=== PATIENT | male | born 1955 | race Hispanic/Latino ===

== ENCOUNTER → 2019-02-27 | Outpatient (CLI) | payer MEDICAID ==
[~2019-02-27] MED LIST: AMBROXOL PO; AMIO200T5 PO; LOSA1TAB37 PO; METO-408 PO
== END | disposition home or self-care (01) ==
LOC: SHCH 09:25
PROVIDERS: ATTEND Internal Medicine Cardiovascular Disease
DX: I07.1 Rheumatic tricuspid insufficiency (principal)
CPT/HCPCS: 93306

== ENCOUNTER → 2019-03-03 | Outpatient (CLI) | payer MEDICAID ==
[~2019-03-03] VITALS: Ht 162.6 cm; Wt 65.3 kg
[~2019-03-03] MED LIST changes: +REGADENOSON 0.4 MG/5 ML PF SYG IVP SCH
== END | disposition home or self-care (01) ==
LOC: EDUNIT# 08:10 → SHCH 08:29
PROVIDERS: ATTEND Internal Medicine Cardiovascular Disease
DX: I25.89 Other forms of chronic ischemic heart disease (principal)
CPT/HCPCS: 78452; 93017; 96374; A9500 ×2; J2785

== ENCOUNTER 2019-03-18 06:25 | Day surgery (SDC) | payer MEDICAID ==
[2019-03-16 08:51] LABS: BASOPHILS % (AUTO) 0.6 % (0.0-5.0); EOSINOPHILS % (AUTO) 1.2 % (0.0-8.0); HEMATOCRIT 46.7 % (42-54); LYMPHOCYTES % (AUTO) 18.9 % (21.0-51.0); MEAN CORPUSCULAR HEMOGLOBIN 35.5 pg (27.0-33.0); MEAN CORPUSCULAR HGB CONC 33.9 g/dL (32.0-36.0); MEAN CORPUSCULAR VOLUME 104.7 fL (79-99); MONOCYTES % (AUTO) 11.4 % (3.0-13.0); NEUTROPHILS % (AUTO) 67.9 % (40.0-77.0); PLATELET COUNT (AUTO) 245 K/uL (130-400); RED BLOOD CELL COUNT(AUTO) 4.46 MIL/uL (4.50-6.20); RED CELL DISTRIBUTION WIDTH 15.6 % (11.0-15.5); WHITE BLOOD COUNT (AUTO) 8.2 K/uL (4.8-10.8)
[2019-03-16 08:56] LABS: APPEARANCE,URINE Clear (CLEAR); BILIRUBIN,URINE Negative (NEGATIVE); COLOR,URINE Yellow (YELLOW); GLUCOSE, URINE (UA) Negative (NEGATIVE); KETONES,URINE Negative (NEGATIVE); LEUKOCYTE ESTERASE ,URINE Negative (NEGATIVE); NITRATE,URINE Negative (NEGATIVE); OCCULT BLOOD,URINE Negative (NEGATIVE); PH,URINE 5.5 (5.0-8.0); PROTEIN,URINE Negative (NEGATIVE)
[2019-03-16 08:58] LABS: CREATININE 1.6 mg/dL (0.5-1.5); POTASSIUM 4.6 mmol/L (3.5-5.1)
[2019-03-16 09:00] LABS: INR 1.1 (0.85-1.15); PARTIAL THROMBOPLASTIN TIME 29.9 SEC (26.3-35.5); PROTHROMBIN TIME 11.5 SEC (9.6-11.6)
[2019-03-16 09:05] VITALS: BP 140/85
--- NOTE | 2019-03-17 13:34 | NUR ---
reported sodium of 132, bun 27, skip operator 1.6 cl 98, gfr 46, new orders to hydrate patient before procedure (see orders ) and to repeat bmp in the morning of procedure 03/18/19. Reported chest xray results no new orders.
[~2019-03-18] VITALS: Ht 162.6 cm; Wt 65.3 kg
[2019-03-18] VITALS (11 sets, daily range): BP systolic 116–147; BP diastolic 63–87
[~2019-03-18 06:25] MED LIST changes: -REGADENOSON 0.4 MG/5 ML PF SYG IVP SCH; +SODIUM CHLORIDE 0.9% 1000ML 1,000 ML IV SCH
[2019-03-18 07:07] LABS: CREATININE 1.5 mg/dL (0.5-1.5); POTASSIUM 4.6 mmol/L (3.5-5.1)
--- NOTE | 2019-03-18 10:25 | NUR ---
procedure pt taken to lab scientist via bed,
[2019-03-18] MEDS ORDERED: IOHEXOL 350 MG/ML 100ML INFUS..BTL IV ONE (10:26)
[2019-03-18] MEDS ORDERED: LIDOCAINE HCL 2% 20ML ONE (10:26)
[2019-03-18] MEDS ORDERED: IOHEXOL-350 75 ML VIAL IV ONE (10:56)
[2019-03-18] MEDS ORDERED: SODIUM CHLORIDE 0.9% 1000ML 1,000 ML IV SCH (11:14)
[2019-03-18] MEDS ORDERED: ACETAMINOPHEN-CODEINE 300/30MG TAB PO PRN ×2 (11:15)
--- NOTE | 2019-03-18 11:30 | NUR ---
POST RECEIVED PT BACK FROM [facility]. S/P [facility], PT AWAKE AND ALERT IN BED, NO DISTRESS NOTED. RIGHT GROIN WITH PERCLOSE DRESSING TO SITE DRY AND INTACT, SEE POST CATH ASSESSMENT. PLAN OF CARE DISCUSS WITH PATIENT/ FAMILY.
--- NOTE | 2019-03-18 16:07 | NUR ---
OXYGEN SANDEEP ALEMAN WITH DR. OLMSTEAD NOTIFIED THAT PATIENT HAS BEEN ON 02 3L NC SINCE HE ARRIVED FROM [facility]. PATIENT 02 SAT DROPS TO 89 %-92 ON ROOM AIR. PT DENIES ANY CHEST PAIN OR ANY OTHER DISCOMFORTS. PT STATES HIS BASELINE IS 02 SAT 92%, PT STATES " I HAVE ALWAYS HAD BAD LUNGS" HX EMPHYSEMA. BREATH SOUNDS DIMINISHED BILATERALLY SAME PRE PROCEDURE. PT WILL BE SLIGHTLY WEAN OFF OXYGEN BEFORE HE GOES HOME.
--- NOTE | 2019-03-18 17:20 | NUR ---
DISCHARGE PATIENT DISCHARGED HOME WITH SPOUSE. NO BLEEDING, NO HEMATOMA NOTED TO CATH SITE. PULSES PRESENT BILATERAL FEET. AND PATIENT VERBALIZED UNDERSTANDING OF INSTRUCTIONS.
== END 2019-03-18 17:20 | disposition home or self-care (01) ==
LOC: DAH 06:25
PROVIDERS: ATTEND Internal Medicine Cardiovascular Disease
DX: I25.118 Atherosclerotic heart disease of native coronary artery with other forms of angina pectoris (principal); R94.39 Abnormal result of other cardiovascular function study; I10 Essential (primary) hypertension; I48.0 Paroxysmal atrial fibrillation; J84.10 Pulmonary fibrosis, unspecified; F17.210 Nicotine dependence, cigarettes, uncomplicated; Z79.899 Other long term (current) drug therapy; Z98.890 Other specified postprocedural states; Z79.82 Long term (current) use of aspirin; Z72.89 Other problems related to lifestyle; Z83.3 Family history of diabetes mellitus
CPT/HCPCS: 36415 ×2; 71045; 80048 ×2; 81003; 85025; 85610; 85730; 93005; 93458; A4606; C1760; C1894; J1644 ×3; J3490; J7030; Q9965; Q9967